=== PATIENT | female | born 1950 | race Hispanic/Latino ===

== ENCOUNTER → 2023-12-30 | Outpatient (CLI) | payer OTHER | END | disposition home or self-care (01) | LOC: RAH 10:04 | PROVIDERS: ATTEND Internal Medicine | DX: S93.402A Sprain of unspecified ligament of left ankle, initial encounter (principal); M77.32 Calcaneal spur, left foot; X58.XXXA Exposure to other specified factors, initial encounter; Y93.89 Activity, other specified; Y92.89 Other specified places as the place of occurrence of the external cause; Y99.8 Other external cause status | CPT/HCPCS: 73620 ==